=== PATIENT | female | born 1975 | race Caucasian/White ===

== ENCOUNTER 2021-04-14 01:53 | Observation (INO) | payer BC ==
[2021-04-14 02:38] VITALS: BMI 34.8
[2021-04-14] MEDS ORDERED: Acetaminophen 325 MG TAB PO PRN (03:02)
[2021-04-14] MEDS ORDERED: Ondansetron PF 4 MG/2 ML Vial IVP PRN (03:02)
[2021-04-14] MEDS ORDERED: HYDROcodone/Acetaminophen 7.5/325 mg Tablet PO PRN (03:06)
[2021-04-14] MEDS ORDERED: Ketorolac Tromethamine 30 MG/ML VIAL IVP SCH (03:30)
[2021-04-14] MEDS ORDERED: diphenhydrAMINE 50 MG/ML VIAL IVP SCH (04:00)
[2021-04-14] MEDS ORDERED: Fentanyl 100 MCG/2 ML VIAL SLOW IVP SCH (04:00)
[2021-04-14 05:25] LABS: #Eosinphils 0.2 thou/uL (0.0-0.7); #Lymphocytes 2.5 thou/uL (1.20-3.40); #Monocytes 0.4 thou/uL (0.11-0.59); #Neutrophils 2.2 thou/uL (1.40-6.50); %Basophils 0.7 % (0.0-1.0); %Eosinophils 3.3 % (0.0-10.0); %Lymphocytes 47.7 % (21.0-51.0); %Monocytes 6.9 % (0.0-10.0); %Neutrophils 41.4 % (42.0-75.0); Hemoglobin 12.5 g/dL (12.0-16.0); Mean Corpuscular HGB CONC 33.3 g/dL (32.0-36.0); Mean Corpuscular Hemoglobin 31.5 pg (27.0-31.0); Mean Corpuscular Volume 94.4 fL (78.0-98.0); Mean Platelet Volume 7.3 fL (7.4-10.4); Platelet Count 265 thou/uL (130-400); RBC Distribution Width 12.9 % (11.5-14.5); Red Blood Cell (RBC) Count 3.98 mill/uL (4.20-5.40); White Blood Cell (WBC) Count 5.3 thou/uL (4.8-10.8)
[2021-04-14 05:28] LABS: Anion Gap 10 mmol/L (10-20); BUN (Urea Nitrogen) 9 mg/dL (7.0-18.7); Calc. Creatinine Clearance 158 mL/min (70-130); Calcium 8.9 mg/dL (7.8-10.44); Carbon Dioxide 16 mmol/L (22-29); Chloride 116 mmol/L (98-107); Glucose 87 mg/dL (70-105); Magnesium 1.8 mg/dL (1.6-2.6); Potassium 3.3 mmol/L (3.5-5.1); Sodium 139 mmol/L (136-145)
[2021-04-14] MEDS ORDERED: Morphine 2 MG/ML VIAL SLOW IVP PRN (10:06)
[2021-04-14] MEDS ORDERED: Magnesium Oxide 400 MG TAB PO SCH (10:15)
[2021-04-14] MEDS: diphenhydrAMINE 25 MG CAP PO PRN ×3 (11:04→23:13)
[2021-04-14] MEDS: cefTRIAXone\\ROCEPHIN 1 GM in Sodium Chloride 0.9% 100 ML IVPB SCH (11:50)
[2021-04-14] MEDS: D5 1/2 NS w/40 mEq KCL 1,000 ML IV SCH ×2 (11:50→23:13)
[2021-04-14] MEDS: Fentanyl 100 MCG/2 ML VIAL SLOW IVP PRN ×3 (11:51→20:33)
[2021-04-14 13:26] LABS: Anion Gap 10 mmol/L (10-20); BUN (Urea Nitrogen) 10 mg/dL (7.0-18.7); Calc. Creatinine Clearance 148 mL/min (70-130); Calcium 9.3 mg/dL (7.8-10.44); Carbon Dioxide 18 mmol/L (22-29); Chloride 116 mmol/L (98-107); Glucose 88 mg/dL (70-105); Potassium 3.3 mmol/L (3.5-5.1); Sodium 141 mmol/L (136-145)
[2021-04-14] MEDS: Morphine 4 MG/ML VIAL SLOW IVP PRN ×3 (13:51→22:18)
[2021-04-14] MEDS ORDERED: Doxycycline 100 MG in Syringe 0 ML IVPB SCH (21:00)
[2021-04-14] MEDS ORDERED: DOXYCYCLINE IVPB SCH (21:00)
[2021-04-15] MEDS: Fentanyl 100 MCG/2 ML VIAL SLOW IVP PRN ×4 (01:14→15:08)
[2021-04-15] MEDS: Morphine 4 MG/ML VIAL SLOW IVP PRN ×3 (04:17→13:07)
[2021-04-15 05:11] LABS: #Eosinphils 0.2 thou/uL (0.0-0.7); #Lymphocytes 2.4 thou/uL (1.20-3.40); #Monocytes 0.5 thou/uL (0.11-0.59); #Neutrophils 2.5 thou/uL (1.40-6.50); %Basophils 0.8 % (0.0-1.0); %Eosinophils 3.4 % (0.0-10.0); %Lymphocytes 43.3 % (21.0-51.0); %Monocytes 8.2 % (0.0-10.0); %Neutrophils 44.3 % (42.0-75.0); Hemoglobin 12.6 g/dL (12.0-16.0); Mean Corpuscular HGB CONC 33.7 g/dL (32.0-36.0); Mean Corpuscular Hemoglobin 31.5 pg (27.0-31.0); Mean Corpuscular Volume 93.5 fL (78.0-98.0); Mean Platelet Volume 7.3 fL (7.4-10.4); Platelet Count 247 thou/uL (130-400); RBC Distribution Width 12.9 % (11.5-14.5); Red Blood Cell (RBC) Count 3.98 mill/uL (4.20-5.40); White Blood Cell (WBC) Count 5.6 thou/uL (4.8-10.8)
[2021-04-15 05:40] LABS: Anion Gap 12 mmol/L (10-20); BUN (Urea Nitrogen) 10 mg/dL (7.0-18.7); Calc. Creatinine Clearance 152 mL/min (70-130); Calcium 8.7 mg/dL (7.8-10.44); Carbon Dioxide 15 mmol/L (22-29); Chloride 115 mmol/L (98-107); Glucose 82 mg/dL (70-105); Magnesium 1.9 mg/dL (1.6-2.6); Potassium 3.4 mmol/L (3.5-5.1); Sodium 139 mmol/L (136-145)
[2021-04-15] MEDS: diphenhydrAMINE 25 MG CAP PO PRN (07:13)
[2021-04-15] MEDS: cefTRIAXone\\ROCEPHIN 1 GM in Sodium Chloride 0.9% 100 ML IVPB SCH (10:54)
[2021-04-15] MEDS: D5 1/2 NS w/40 mEq KCL 1,000 ML IV SCH (13:08)
[2021-04-15 16:55] VITALS: BP 100/56; TEMP 97.2
[2021-04-15] MEDS ORDERED: metroNIDAZOLE 500 MG TAB PO SCH (21:00)
== END 2021-04-15 16:40 | disposition home or self-care (01) ==
LOC: 2NO 01:53
PROVIDERS: ADMIT Internal Medicine; ATTEND Internal Medicine
DX: K43.5 Parastomal hernia without obstruction or gangrene (principal); N76.0 Acute vaginitis; E87.6 Hypokalemia; G89.29 Other chronic pain; M79.7 Fibromyalgia; E66.9 Obesity, unspecified; Z68.34 Body mass index [BMI] 34.0-34.9, adult; Z88.0 Allergy status to penicillin; Z88.2 Allergy status to sulfonamides; Z88.5 Allergy status to narcotic agent; Z91.040 Latex allergy status; Z91.041 Radiographic dye allergy status
CPT/HCPCS: 36415; 80048; 83735; 85025; 87070; 87077; 87086; 87186; 96374; 96375; 96376; G0378; J0696; J1200; J2270; J2405; J3010; J3480; J3490